=== PATIENT | male | born 2000 | race Caucasian/White ===

== ENCOUNTER 2021-01-31 09:00 | Outpatient (REF) | payer MEDICAID, SELFPAY ==
[2021-02-03 18:21] LABS: Calprotectin 33.9 mcg/g
== END 2021-01-31 09:01 | disposition home or self-care (01) ==
LOC: NCHCN 09:00
PROVIDERS: PCP Family Medicine; Visit Provider Family Medicine
DX: K62.5 Hemorrhage of anus and rectum (principal)
CPT/HCPCS: 83993

== ENCOUNTER 2023-06-28 09:52 | Outpatient (REF) | payer MEDICAID, SELFPAY ==
[2023-06-28 15:09] LABS: HCT 47.8 % (40.0-50.0); HGB 16.3 g/dL (13.5-17.5); MCH 31.7 pg (27.0-33.0); MCHC 34.1 % (32.0-36.0); MCV 93 fL (80-95); MPV 10.5 fL (8.0-11.0); Platelet Count 220 10^3/uL (130-400); RBC 5.14 10^6/uL (4.36-5.78); RDW 12.1 % (11.8-14.1); WBC 5.97 10^3/uL (4.4-10.8)
[2023-06-28 15:33] LABS: ALT 25 U/L (16-63); AST 14 U/L (15-37); Albumin 4.7 g/dL (3.4-5.0); Alkaline Phosphatase 124 U/L (46-116); Anion Gap 7.5 mmol/L (3-11); BUN 16 mg/dL (7-18); Bilirubin, Total 0.7 mg/dL (0.2-1.0); CO2 32.5 mmol/L (21.0-32.0); CREATININE 0.9 mg/dL (0.70-1.30); Calcium 9.5 mg/dL (8.5-10.1); Chloride 101 mmol/L (98-107); Estimated GFR 123.07 (mL/min/1.73m2); FREE T4 1.13 ng/dL (0.76-1.46); Glucose 93 mg/dL (74-106); Potassium 4.2 mmol/L (3.5-5.1); Sodium 141 mmol/L (136-145); TSH 0.88 uIU/Ml (0.36-3.74); Total Protein 8.3 g/dL (6.4-8.2)
[2023-06-28 15:36] LABS: C-Reactive Protein < 0.50 mg/dL (<or=0.5)
[2023-06-29 13:13] LABS: Chlamydia Result Negative (Negative); GC Result Negative (Negative)
== END 2023-06-28 09:53 | disposition home or self-care (01) ==
LOC: NCHCN 09:52
PROVIDERS: PCP Family Medicine; Visit Provider Family Medicine
DX: R00.2 Palpitations (principal); R53.83 Other fatigue; M54.50 Low back pain, unspecified; R35.0 Frequency of micturition
CPT/HCPCS: 80053; 85027; 87491; 87591; 84439; 84443; 86140

== ENCOUNTER → 2023-07-05 02:10 | Outpatient (CLI) | payer MEDICAID, SELFPAY ==
--- NOTE | 2023-07-05 14:50 | DI.MRI_ITS ---
Exam(s) MR BRAIN WO EXAM: MR BRAIN WO CLINICAL HISTORY: HEADACHE, R51.9 TECHNIQUE: Multiplanar multisequence MRI of the brain was performed. COMPARISON: No exams were available for comparison FINDINGS: CEREBRAL PARENCHYMA: There is no evidence of intracranial hemorrhage, mass effect, or shift of midline structures. There are no extra-axial fluid collections. Ventricles are not enlarged or shifted. There is no significant focal signal abnormality in the cerebellar hemispheres nor within the addy, m idbrain, and thalami. There is no abnormal signal abnormality in the periventricular white matter. There is no significant focal signal abnormality evident on diffusion imaging to suggest acute ischem ic event. Sw I: No evidence of microhemorrhages. PITUITARY GLAND: No mass nor parasellar abnormality. No obvious abnormality in the cavernous sinuses. FLOW VOIDS: The expected flow void are noted. No evidence of obvious aneurysm nor obvious vascular ma lformation. None the left vertebral artery is dominant. PARANASAL SINUSES: There is mild circumferential mucosal thickening in the right maxillary sinus, not associated with fluid level. Left maxillary sinus unremarkable as are the sphenoid sinuses. The fr ontal sinuses are not developed. Mastoid air cells unremarkable. ORBITS: No obvious findings. IMPRESSION: No significant intracranial findings on this noninfused MRI scan of the brain. Mild mucosal thickening noted in the right maxillary sinus. No fluid level therein. No polyps nor r etention cysts identified. Frontal sinuses are hypoplastic-not developed. DATA REPOSITORY:
== END ==
PROVIDERS: PCP Family Medicine; Visit Provider Family Medicine
DX: R51.9 Headache, unspecified (principal)
CPT/HCPCS: 70551

== ENCOUNTER 2023-07-10 13:11 | Outpatient (CLI) | payer MEDICAID, SELFPAY ==
[2023-07-10 11:32] LABS: ESR 1 mm/hr (0-15)
[2023-07-10 11:36] LABS: Bilirubin Negative (Negative); Blood Negative (Negative); Clarity Clear (Clear); Glucose Negative (Negative); Ketones Negative (Negative); Leukocyte Esterase Negative (Negative); Nitrite Negative (Negative); Urobilinogen 0.2 mg/dL (Up to 0.2)
[2023-07-10 11:39] LABS: Mono Screening Negative (Negative)
[2023-07-10 12:25] LABS: Vitamin D 25 Total 35.8 ng/mL (30-100)
[2023-07-10 12:28] LABS: ALT 17 U/L (16-63); AST 14 U/L (15-37); Albumin 4.9 g/dL (3.4-5.0); Alkaline Phosphatase 127 U/L (46-116); Anion Gap 8.8 mmol/L (3-11); BUN 18 mg/dL (7-18); Bilirubin, Total 0.5 mg/dL (0.2-1.0); CO2 32.2 mmol/L (21.0-32.0); CREATININE 0.9 mg/dL (0.70-1.30); Calcium 9.7 mg/dL (8.5-10.1); Calculated LDL 132 mg/dL (<100); Chloride 102 mmol/L (98-107); Cholesterol 206 mg/dL (<200); Estimated GFR 123.07 (mL/min/1.73m2); Glucose 86 mg/dL (74-106); HDL Cholesterol 63 mg/dL (40-60); Potassium 4.1 mmol/L (3.5-5.1); Sodium 143 mmol/L (136-145); TSH (W/Ref FT4) 0.78 uIU/mL (0.36-3.74); Total Protein 8.4 g/dL (6.4-8.2); Triglyceride 56 mg/dL (<150); Vitamin B12 582 pg/mL (193-986)
[2023-07-10 18:39] LABS: HIV-1/2 Ag & Ab Screen Negative (Negative)
[2023-07-10 20:32] LABS: Hepatitis A Antibody IgM Negative (Negative); Hepatitis B Core Antibody Negative (Negative); Hepatitis B surface Ag Negative (Negative); Hepatitis C Ab w Rflx HCV PCR Negative (Negative)
[2023-07-11 09:43] LABS: Lyme Ab w Rflx to Lyme Confirm Negative (Negative)
[2023-07-11 09:50] LABS: Syphilis Serology (RPR) Negative (Negative)
[2023-07-11 14:02] LABS: ANA Interpretation Negative (Negative)
[2023-07-11 16:09] LABS: Chlamydia Result Negative (Negative); GC Result Negative (Negative)
== END 2023-07-10 13:12 | disposition home or self-care (01) ==
LOC: LBO 13:11
PROVIDERS: PCP Family Medicine; Visit Provider Nurse Practitioner Family
DX: E55.9 Vitamin D deficiency, unspecified (principal); D51.3 Other dietary vitamin B12 deficiency anemia; I10 Essential (primary) hypertension; E78.5 Hyperlipidemia, unspecified; A69.20 Lyme disease, unspecified
CPT/HCPCS: 36415; 80053; 80061; 82306; 85652; 86704; 86709; 86803; 87340; 87389; 87491; 87591; 81003; 82607; 84443; 86038; 86308; 86592; 86618

== ENCOUNTER 2023-09-29 08:54 | Emergency (ER) | payer MEDICAID, SELFPAY ==
[2023-09-29] VITALS (24 sets, daily range): BP systolic 98–141; BP diastolic 49–88; PULSE 44–71; RESP 12–22; TEMP 36.6–36.8; O2SAT 99–100
[2023-09-29] MEDS: ACETAMINOPHEN 1,000 MG/100 ML BTL 400 MG IVPB (09:20)
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
[2023-09-29 09:35] LABS: Abs Immature Grans 0.07 10^3/uL (0.0-0.06); Absolute Basophil Count 0.02 10^3/uL (0.0-0.2); Absolute Eosinophil Count 0.18 10^3/uL (0.0-0.7); Absolute Lymphocyte Count 1.62 10^3/uL (1.2-3.4); Absolute Monocyte Count 0.39 10^3/uL (0.1-0.8); Basophils % 0.3 %; Eosinophils % 2.6 %; HCT 46.3 % (40.0-50.0); HGB 15.6 g/dL (13.5-17.5); Lymphocytes % 23.5 %; MCHC 33.7 % (32.0-36.0); MCV 95 fL (80-95); MPV 9.9 fL (8.0-11.0); Monocytes % 5.7 %; Neutrophils % 66.9 %; Platelet Count 175 10^3/uL (130-400); RBC 4.87 10^6/uL (4.36-5.78); RDW 11.8 % (11.8-14.1); RDW-SD 40.9 fL; WBC 6.88 10^3/uL (4.4-10.8)
[2023-09-29] MEDS: Omnipaque 350 MG/ML 100 ML BTL IJ (10:03)
[2023-09-29] MEDS: Normal Saline - Diluent 50 ML VIAL IJ (10:04)
--- NOTE | 2023-09-29 10:04 | DI.CT_ITS ---
Exam(s) CT HEAD CERVICAL SPINE WO EXAM: CT HEAD CERVICAL SPINE WO CLINICAL HISTORY: Trauma, loss of consciousness. TECHNIQUE: Imaging Protocol: Axial computed tomography images with coronal and sagittal reformatted images were created and reviewed COMPARISON: No exams were available for comparison FINDINGS: CT Head: Ventricles and Extra axial spaces: Normal in size and morphology for the patient's age. Hemorrhage: None. Cerebral parenchyma: Normal. Midline shift: None. Brainstem/Cerebellum: Normal. Calvarium: Normal. Visualized Paranasal sinuses/Mastoids: Clear. Soft Tissues: Unremarkable. CT Cervical Spine: Bones: No acute fracture or subluxation. Soft Tissues: Small amount of subcutaneous air is seen in anteriorly on the left. Lung Apices: There is a small left apical pneumothorax. IMPRESSION: 1. No acute intracranial process. 2. No acute fracture or subluxation in the cervical spine. 3. Small left apical pneumothorax. RADIATION DOSE DELIVERED: Total DLP DATA REPOSITORY: All CT scans at this facility are submitted to the National Radiology Data Registry (NRDR) Dose Index Registry (DIR) with the [employer] (ACR). RADIATION OPTIMIZATION: All CT scans at this facility use at least one of these dose optimization te chniques: automated exposure control; mA and/or kV adjustment per patient size (includes targeted exa ms where dose is matched to clinical indication); or iterative reconstruction.
--- NOTE | 2023-09-29 10:07 | DI.CT_ITS ---
Exam(s) CT CHEST/ABD/PEL W CT THORACIC LUMBAR SPINE REC EXAM: CT CHEST/ABD/PEL W and CT thoracic and lumbar spine recons CLINICAL HISTORY: Trauma, right clavicle deformity TECHNIQUE: Imaging Protocol: Axial computed tomography images with coronal and sagittal reformatted images were created and reviewed CONTRAST MATERIAL: Intravenous: Omnipaque 350 contrast volume:100 mL Oral: No COMPARISON: There are no priors for comparison. FINDINGS: CHEST: Tracheobronchial tree: Patent where visualized. Pulmonary parenchyma: No consolidation or dominant measurable mass. No architectural distortion. Visualized thyroid gland: Unremarkable. Mediastinum and Darby: No dominant adenopathy or fluid collection. The esophagus is unremarkable. The re is residual thymic tissue in the anterior mediastinum. Pleura: There are small bilateral apical pneumothoraces, left greater than right. No pleural effusio n. Heart: The heart is not dilated. No coronary artery calcifications are seen. No pericardial effusion. Pulmonary arteries: Due to the timing of the bolus, peripheral pulmonary artery evaluation for pulmon flor emboli is limited. No large central pulmonary embolus is seen. Aorta: Thoracic aorta non-dilated. No evidence of dissection. Lymph nodes: Within normal limits. Soft tissues: There is subcutaneous air along the anterior superior left chest wall. Bones:There is an acute mildly displaced fracture of the midshaft of the right clavicle. There are n ondisplaced fractures of the anterior aspects of the right 2nd and 3rd ribs. No displaced left rib f ractures are identified. CT scan of the thoracic spine recons: No acute fractures or subluxations are seen in the thoracic spi ne. ABDOMEN: Liver: Normal density. No measurable mass. Portal, Superior Mesenteric, and Splenic Veins: Unremarkable. Gallbladder and Biliary Tract: No radiodense calculus or dilation. Pancreas: Normal density, no abnormal calcifications or inflammatory process. Spleen: Normal. Adrenals: No masses seen. Kidneys: Normal size, contour and axis. No radiodense stones or obstructive uropathy. No masses seen. Abdominal Aorta: Abdominal portion non-dilated. Bowel: No obstruction or bowel wall thickening. No evidence of appendicitis. Peritoneal Cavity: No ascites, collection or mesenteric inflammatory response. No free air. Lymph Nodes: Within normal limits. Bones: Within normal limits for the patient's age. Soft Tissues: Unremarkable. Lumbar spine CT recons: There is a displaced fracture of the right transverse process of L1. This is of indeterminate acuity. Please correlate with the patient's site of pain. PELVIS: Bladder: Symmetric distention, no gross wall thickening. Reproductive Organs: Unremarkable as visualized. Lymph Nodes: Within normal limits. Bones: Within normal limits. IMPRESSION: 1. Small bilateral apical pneumothoraces, left greater than right. 2. Small amount of subcutaneous air in the anterior superior left chest wall. 3. Nondisplaced fractures involving the anterior and medial aspects of the right 2nd and 3rd ribs. 4. No acute abdominal or pelvic organ injury. 5. No thoracic fracture or subluxation. 6. Displaced fracture of the right transverse process of L1 of indeterminate acuity. Please correlat e with the patient's site of pain. Otherwise no acute fractures or subluxations are seen in the lumb ar spine. RADIATION DOSE DELIVERED: Total DLP DATA REPOSITORY: All CT scans at this facility are submitted to the National Radiology Data Registry (NRDR) Dose Index Registry (DIR) with the [employer] (ACR). RADIATION OPTIMIZATION: All CT scans at this facility use at least one of these dose optimization te chniques: automated exposure control; mA and/or kV adjustment per patient size (includes targeted exa ms where dose is matched to clinical indication); or iterative reconstruction.
[2023-09-29 11:59] LABS: ALT 79 U/L (16-63); AST 66 U/L (15-37); Albumin 4.2 g/dL (3.4-5.0); Alkaline Phosphatase 112 U/L (46-116); Anion Gap 5.4 mmol/L (3-11); BUN 13 mg/dL (7-18); Bilirubin, Total 0.83 mg/dL (0.2-1.0); CO2 30.6 mmol/L (21.0-32.0); Calcium 8.8 mg/dL (8.5-10.1); Chloride 103 mmol/L (98-107); Estimated GFR 108.46 (mL/min/1.73m2); Glucose 96 mg/dL (74-106); Potassium 4.7 mmol/L (3.5-5.1); Sodium 139 mmol/L (136-145); Total Protein 7.2 g/dL (6.4-8.2)
[2023-09-29 12:21] LABS: Bilirubin Negative (Negative); Blood Small (Negative); Clarity Clear (Clear); Glucose Negative (Negative); Ketones Trace mg/dL (Negative); Leukocyte Esterase Negative (Negative); Nitrite Negative (Negative); Urobilinogen 0.2 mg/dL (Up to 0.2); pH 6.5 (5-8)
[2023-09-29 12:27] LABS: Bacteria Rare HPF (Negative); C & S Indicated? No; Crystals Negative HPF (Negative); Epithelial Cells Negative HPF (Negative); Mucus Trace (Negative); WBC 0-2 HPF (0-5)
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
--- NOTE | 2023-09-29 16:07 | DI.RAD_ITS ---
Exam(s) XR SHOULDER LT COMPLETE 2+V EXAM: XR SHOULDER LT COMPLETE 2+V CLINICAL HISTORY: trauma. TECHNIQUE: 2D digital imaging was performed. COMPARISON: No exams were available for comparison FINDINGS: Four views No evidence of fracture or dislocation abnormal soft tissue calcifications. Subacromial space appear s unremarkable. No evidence of clavicle fracture. Slight offset of the AC joint, possibly within no rmal limits. No adjacent rib fractures evident. No ipsilateral lung contusion or pneumothorax. IMPRESSION: Slight offset of the AC joint, pops the within normal limits. Correlation with site of tenderness is recommended. No fracture of the left clavicle evident. DATA REPOSITORY: RADIATION DOSE DELIVERED:
--- NOTE | 2023-09-29 16:07 | DI.RAD_ITS ---
Exam(s) XR CLAVICLE RT EXAM: XR CLAVICLE RT CLINICAL HISTORY: trauma. TECHNIQUE: 2D digital imaging was performed. COMPARISON: No exams were available for comparison FINDINGS: Two views There is a nondisplaced fracture of the midshaft of right. AC joint not distracted. Acromion appears unremarkable. No adjacent rib fractures. No apical pneum othorax evident IMPRESSION: Midshaft right clavicle fracture. DATA REPOSITORY: RADIATION DOSE DELIVERED:
--- NOTE | 2023-09-29 16:07 | DI.RAD_ITS ---
Exam(s) XR CHEST 2V PA LATERAL EXAM: XR CHEST 2V PA LATERAL CLINICAL HISTORY: Reassess pneumothorax. TECHNIQUE: 2D digital imaging was performed. COMPARISON: CR XR CLAVICLE RT from 09/29/2023 FINDINGS: 2 views: Heart size is normal. The mediastinum is not widened. Lungs are clear. No infiltrates nor pleural effusions. No obvious pneumothorax. Subtle suggestion for right clavicle fracture. AC joint not distracted. No obvious rib fractures. IMPRESSION: No acute pulmonary findings.No obvious pneumothorax Subtle fracture right clavicle DATA REPOSITORY: RADIATION DOSE DELIVERED:
[2023-09-29] MEDS: Ketorolac 15 MG/ML VIAL 7.5 MG IVP (17:01)
== END 2023-09-29 17:33 | disposition home or self-care (01) ==
PROVIDERS: Nurse Practitioner Family; Emergency Provider Physician Assistant
DX: S42.021A Displaced fracture of shaft of right clavicle, initial encounter for closed fracture (principal); S22.41XA Multiple fractures of ribs, right side, initial encounter for closed fracture; S27.0XXA Traumatic pneumothorax, initial encounter; S32.018A Other fracture of first lumbar vertebra, initial encounter for closed fracture; R40.20 Unspecified coma; S43.52XA Sprain of left acromioclavicular joint, initial encounter
CPT/HCPCS: 00123; 74177; 80053; 96374; 96375; 99285; 70450; 71046; 71260; 72125; 73000; 73030; 81003; 81015; 85025; 99283; J0131; J1885; J3490

== ENCOUNTER 2023-09-30 08:24 | Emergency (ER) | payer MEDICAID, SELFPAY ==
[2023-09-30 08:30] VITALS: BP 112/69; PULSE 68; RESP 16; TEMP 36.4; O2SAT 99
--- NOTE | 2023-09-30 08:30 | DI.RAD_ITS ---
Exam(s) XR CHEST 2V PA LATERAL EXAM: XR CHEST 2V PA LATERAL CLINICAL HISTORY: Reassess pneumothorax TECHNIQUE: 2D digital imaging was performed of the chest. Two images were obtained. PA and lateral views were obtained. COMPARISON: CR XR CLAVICLE RT from 09/29/2023 CR XR CHEST 2V PA LATERAL from 09/29/2023 FINDINGS: MEDIASTINUM: Normal. HEART: Normal. PULMONARY VASCULATURE: Normal. LUNGS: Clear. PLEURAL SPACE: No pleural effusion or pneumothorax. BONE:Within normal limits for the patient's age. There is no change in alignment of the right clavic ular fracture. OTHER FINDINGS:Normal. IMPRESSION: 1. No demonstrable pneumothorax is identified at this time. 2. No pulmonary infiltrates. 3. Stable right clavicular fracture. DATA REPOSITORY: RADIATION DOSE DELIVERED:
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
[2023-09-30 09:44] VITALS: BP 110/50; PULSE 62; RESP 18; O2SAT 100
== END 2023-09-30 09:45 | disposition home or self-care (01) ==
PROVIDERS: Emergency Provider Nurse Practitioner Family
DX: J93.9 Pneumothorax, unspecified (principal); S42.024D Nondisplaced fracture of shaft of right clavicle, subsequent encounter for fracture with routine healing; S43.101D Unspecified dislocation of right acromioclavicular joint, subsequent encounter; S22.41XD Multiple fractures of ribs, right side, subsequent encounter for fracture with routine healing; F17.210 Nicotine dependence, cigarettes, uncomplicated; F17.290 Nicotine dependence, other tobacco product, uncomplicated; W15.XXXD Fall from cliff, subsequent encounter
CPT/HCPCS: 99283; 71046

== ENCOUNTER → 2023-10-05 13:38 | Outpatient (CLI) | payer MEDICAID, SELFPAY ==
--- NOTE | 2023-10-05 10:27 | DI.RAD_ITS ---
Exam(s) XR CHEST 2V PA LATERAL EXAM: XR CHEST 2V PA LATERAL CLINICAL HISTORY: HX OF PNEUMONIA TECHNIQUE: 2D digital imaging was performed. Two views. COMPARISON: CR XR CHEST 2V PA LATERAL from 09/29/2023 CR XR CHEST 2V PA LATERAL from 09/30/2023 FINDINGS: HEART: Normal size. Aorta: Not dilated. PULMONARY VASCULATURE: Normal. MEDIASTINUM: Unremarkable. LUNGS: Clear. PLEURAL SPACE: No pneumothorax. Tiny left pleural effusion. BONE:Unremarkable for age. SOFT TISSUES: Unremarkable. IMPRESSION: Tiny left pleural effusion. DATA REPOSITORY: RADIATION DOSE DELIVERED:
--- OUTSIDE RECORDS SUMMARY | 2023-10-05 13:40 | XMS_ITS | Clinical Summary ---
Author Organization [facility] Address [address] [place] [address] Care Team Providers Care Tap Builder Name Role Phone Unknown, Provider Primary Care Provider Encounters Date Type Department Care Team Description 07/10/2023 Lab Requisition [facility] [address] [address] Outr Resulting Lab, Provider 07/10/2023 Lab Requisition [facility] [address] [address] Outr Resulting Lab, Provider 07/10/2023 Lab Requisition [facility] [address] [address] Outr Resulting Lab, Provider 07/10/2023 Lab Requisition [facility] [address] [address] Outr Resulting Lab, Provider from Last 3 Months Social History Tobacco Use Types Packs/Day Years Used Date Smoking Tobacco: Never Assessed Sex and Gender Information Value Date Recorded Sex Assigned at Not on file Gender Identity Not on file Sexual Orientation Not on file Plan of Treatment Health Maintenance Due Date Last Done Comments Hepatitis C Screen 2000 Hepatitis B Vaccine (1 of 3 - 19+ 3-dose series) 03/31 COVID-19 Vaccine ( season) 2022 Procedures Procedure Name Priority Date/Time Associated Diagnosis Comments HIV 1/2 ANTIGEN AND ANTIBODY, 4TH GENERATION Routine 07/10/2023 11:20 EDT SYPHILIS SEROLOGY Routine 07/10/2023 11: 20 EDT LYME AB Routine 07/10/2023 11:20 EDT ANTI NUCLEAR AB (SIDNEY), IFA Routine 07/10/2023 11:20 EDT ACUTE HEPATITIS PROFILE Routine 07/10/2023 11:20 EDT CHLAMYDIA/N. GONORRHOEAE AMPLIFIED NUCLEIC ACID Routine 07/10/2023 11:20 EDT from Last 3 Months Results * ACUTE HEPATITIS PROFILE (07/10/2023 11:20 EDT) Hep B Surface Ag Negative Negative 07/10/2023 20:27 EDT [facility] Hep C Antibody Negative Negative 07/10/2023 20:27 EDT [facility] Hepatitis A Antibody, IgM Negative Negative 07/10/2023 20:27 EDT [facility] Comment:The results of this assay can be falsely lowered due to the consumption of Biotin. Hepatitis B Core Ab, Total Negative Negative 07/10/2023 20:27 EDT [facility] Blood VENOUS BLOOD / Unknown 07/10/2023 11:20 EDT 07/10/2023 16:51 EDT Provider Outr Resulting Lab CHEMISTRY & BLOOD GAS ORDERABLES Performing Organization Address [facility]/ZIP Co de Phone Number [facility] [address] [place] [address] * SYPHILIS SEROLOGY (07/10/2023 11:20 EDT) Pathologist [facility] Syphilis Serology Negative Negative 07/11/2023 9:45 EDT [facility] Blood VENOUS BLOOD / Unknown 07/10/2023 11:20 EDT 07/10/2023 16:51 EDT Provider Outr Resulting Lab IMMUNOLOGY A ND SEROLOGY ORDERABLES Performing Organization Address [facility]/ZIP Co de Phone Number [facility] [address] [place] [address] * LYME AB (07/10/2023 11:20 EDT) Lyme Ab Negative Negative 07/11/2023 9:38 EDT [facility] Blood VENOUS BLOOD / Unknown 07/10/2023 11:20 EDT 07/10/2023 16:51 EDT Provider Outr Resulting Lab IMMUNOLOGY A ND SEROLOGY ORDERABLES Performing Organization Address City/[facility]/ZIP Co de Phone Number [facility] [address] [place] [address] * CHLAMYDIA/N. GONORRHOEAE AMPLIFIED RNA (07/10/2023 11:20 EDT) Pathologist [facility] Neisseria gonorrhoeae Result Negative Negative 07/11/2023 16:04 EDT [facility] Chlamydia trachomatis Result Negative Negative 07/11/2023 16:04 EDT [facility] Urine URINE / Unknown 07/10/2023 1 1:20 EDT 07/10/2023 17:19 EDT Provider Outr Resulting Lab MICROBIOLOGY - GENERAL ORDERABLES Performing Organization Address [facility] Co de Phone Number [facility] [address] [place] [phone] * HIV 1/2 ANTIGEN AND ANTIBODY, 4TH GENERATION (07/10/2023 11:20 EDT) Pathologist [facility] HIV 1 and 2 Antibody/p24 Antigen, 4th Generation Negative Negative 07/10/2023 18:35 EDT [facility] Comment:If acute HIV-1 infec tion is suspected in a high risk patient, submit plasma specimen for HIV-1 RNA quantitation test. Blood VENOUS BLOOD / Unknown 07/10/2023 11:20 EDT 07/10/2023 16:51 EDT Narrative [facility] - 07/10/2023 18:35 EDT Fourth Generation assay performed on the Siemens Centaur XPT. Provider Outr Resulting Lab IMMUNOLOGY A ND SEROLOGY ORDERABLES Performing Organization Address City/[facility]/ZIP Co de Phone Number [facility] [address], [place] [address] * ANTI NUCLEAR AB (SIDNEY), IFA (07/10/2023 11:20 EDT) SIDNEY Interpretation Negative Negative 2023 13:57 EDT [facility] Comment:No titer performed, SIDNEY Screen is negative. Blood VENOUS BLOOD / Unknown 07/10/2023 11:20 EDT 07/10/2023 16:51 EDT Narrative [facility] - 07/11/2023 13:57 EDT Results were obtained with the [employer] NOVA Lite HEp-2 SIDNEY Kit by indirect immunofluorescence. Provider Outr Resulting Lab IMMUNOLOGY A ND SEROLOGY ORDERABLES Performing Organization Address [facility]/ZIP Co de Phone Number [facility] [address], [place] [address] from Last 3 Months Care Teams Tap Builder Relationship Specialty Start Date End Date Unknown, Provider, PCP - General 02/03/21
--- OUTSIDE RECORDS SUMMARY | 2023-10-05 13:40 | XMS_ITS | Encounter Summary ---
Author Organization [facility] Address [address] [place] [address] Care Team Providers Care Stem Roller Operator Name Role Phone Unknown, Provider Primary Care Provider Encounter Details Date Type Department Care Team (Late st Contact Info) Description 07/10/2023 Lab Requisition [facility] Pathology & Laboratory Medicine - [facility] [address], [place] [phone] Outr Resulting Lab, Provider Social History Tobacco Use Types Packs/Day Years Used Date Smoking Tobacco: Never Assessed Sex and Gender Information Value Date Recorded Sex Assigned at Not on file Gender Identity Not on file Sexual Orientation Not on file documented as of this encounter Plan of Treatment Not on file documented as of this encounter Procedures Procedure Name Priority Date/Time Associated Diagnosis Comments HIV 1/2 ANTIGEN AND ANTIBODY, 4TH GENERATION Routine 07/10/2023 11:20 EDT documented in this encounter Results * HIV 1/2 ANTIGEN AND ANTIBODY, 4TH GENERATION (07/10/2023 11:20 EDT) HIV 1 and 2 Antibody/p24 Antigen, 4th Generation Negative Negative 07/10/2023 18:35 EDT [facility] Comment:If acute HIV-1 infec tion is suspected in a high risk patient, submit plasma specimen for HIV-1 RNA quantitation test. Blood VENOUS BLOOD / Unknown 07/10/2023 11:20 EDT 07/10/2023 16:51 EDT Narrative [facility] - 07/10/2023 18:35 EDT Fourth Generation assay performed on the Siemens ScalITaur XPT. Provider Outr Resulting Lab IMMUNOLOGY A ND SEROLOGY ORDERABLES [facility] [address] [place] [address] documented in this encounter Visit Diagnoses Not on filedocumented in this encounter Care Teams Stem Roller Operator Relationship Specialty Start Date End Date Unknown, Provider, PCP - General 02/03/21 documented as of this encounter
--- OUTSIDE RECORDS SUMMARY | 2023-10-05 13:40 | XMS_ITS | Encounter Summary ---
Author Organization [facility] Address [address] [place] [address] Care Team Providers Care Elevator Operator Service Name Role Phone Unknown, Provider Primary Care Provider [phone] Encounter Details Date Type Department Care Team (Late st Contact Info) Description 03/09/2021 Lab Requisition [facility] Pathology & Laboratory Medicine - [facility] [address] [place] [address] Panda Christensen MD [address] [place] [address] [phone] Change in bowel habit; Melena Social History Tobacco Use Types Packs/Day Years Used Date Smoking Tobacco: Never Assessed Sex and Gender Information Value Date Recorded Sex Assigned at Not on file Gender Identity Not on file Sexual Orientation Not on file documented as of this encounter Plan of Treatment Not on file documented as of this encounter Procedures Procedure Name Priority Date/Time Associated Diagnosis Comments SURGICAL PATHOLOGY Today 03/08/2021 10 :18 EST Change in bowel habit Melena documented in this encounter Results * SURGICAL PATHOLOGY (03/08/2021 10:18 EST) Note to Patient The following pathology results have been interpreted by your pathologist and may be available to you before your health provider has had the opportunity to review them. Please allow time for your provider to receive these results and explore management options, if applicable. 03/11/2021 9:32 EST [facility] Final Diagnosis A. TERMINAL ILEUM, BIOPSY: - Enteric mucosa with no significant diagnostic abnormalities. B. COLON, CECUM, BIOPSY: - Colonic mucosa with no significant diagnostic abnormalities. - Benign reactive lymphoid aggregate noted. C. COLON, ASCENDING, BIOPSY: - Colonic mucosa with no significant diagnostic abnormalities. D. COLON, TRANSVERSE, BIOPSY: - Colonic mucosa with no significant diagnostic abnormalities. E. COLON, DESCENDING, BIOPSY: - Colonic mucosa with no significant diagnostic abnormalities. F. COLON, SIGMOID, BIOPSY: - Colonic mucosa with no significant diagnostic abnormalities. G. 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 - Negative for dysplasia. 03/11/2021 9:32 [facility] Attestation There was significant resident/fellow involvement in the diagnostic evaluation of this case. By the signature below, the attending physician certifies that they have personally conducted a gross and/or microscopic examination of the described specimens and rendered or confirmed the above diagnosis. 03/11/2021 9:32 [facility] at 0932 Clinical History History hematochezia, change in bowels; posterior anal fissure, proctitis 03/11/2021 9:32 [facility] Gross Description A. Received in formalin labelled with proper patient identification (initials B, E) and terminal ileum is a 0.5 x 0.2 x 0.1 cm light khalil tissue. Submitted intact in A1. B. Received in formalin labelled with proper patient identification (initials B, E) and cecum bx is a khalil-pink tissue measuring 0.9 x 0.1 x 0.1 cm. Submitted intact in B1. C. Received in formalin labelled with proper patient identification (initials B, E) and ascending colon bx is a 0.5 x 0.2 x 0.1 cm khalil-pink tissue. Submitted intact in C1. D. Received in formalin labelled with proper patient identification (initials B, E) and transverse colon bx is a light khalil tissue measuring 0.5 x 0.1 x 0.1 cm. Submitted intact in D1. E. Received in formalin labelled with proper patient identification (initials B, E) and descending colon bxs are 2 light khalil tissues measuring 0.1 x 0.1 x 0.1 cm and 0.3 x 0.1 x 0.1 cm. Submitted intact in E1. F. Received in formalin labelled with proper patient identification (initials B, E) and sigmoid colon bx is a khalil-pink tissue measuring 0.2 x 0.2 x 0.1 cm. Submitted intact in F1. G. Received in formalin labelled with proper patient identification (initials B, E) and rectum are 3 light khalil tissues ranging in size from 0.3 x 0.1 x 0.1 cm up to 0.4 x 0.2 x 0.1 cm. Submitted intact in G1. SHEILA WALLER(ASCP) 03/09/2021 19:43 03/11/2021 9:32 EST [facility] Resident/Angus w: Keke Clark MD 03/11/2021 9:32 EST [facility] Performing Lab [facility] 03/11/2021 9:32 EST [facility] Scanned Images 03/11/2021 9:32 EST [facility] Tissue SPECIMEN FROM RECTUM / Unknown 03/08/2021 10:18 EST 03/09/2021 17:04 EST Tissue specimen (specimen) CECUM STRUCTURE / Unknown 03/08/2021 10:18 EST 03/09/2021 17:04 EST Tissue specimen (specimen) ASCENDING COLON STRUCTURE / Unknown 03/08/2021 10:18 EST 03/09/2021 17:04 EST Tissue specimen (specimen) TRANSVERSE COLON STRUCTURE / Unknown 03/08/2021 10:18 EST 03/09/2021 17:04 EST Tissue specimen (specimen) DESCENDING COLON STRUCTURE / Unknown 03/08/2021 10:18 EST 03/09/2021 17:04 EST Tissue specimen (specimen) SIGMOID COLON STRUCTURE / Unknown 03/08/2021 10:18 EST 03/09/2021 17:04 EST Tissue specimen (specimen) SPECIMEN FROM RECTUM / Unknown 03/08/2021 10:18 EST 03/09/2021 17:04 EST Panda Christensen MD PATHOLOGY ORD ERABLES [facility] [address] [place] [address] documented in this encounter Visit Diagnoses Diagnosis Change in bowel habit Melena Blood in stool documented in this encounter Care Teams Elevator Operator Service Relationship Specialty Start Date End Date Unknown, Provider, PCP - General 02/03/21 documented as of this encounter
--- OUTSIDE RECORDS SUMMARY | 2023-10-05 13:40 | XMS_ITS | Encounter Summary ---
Author Organization [facility] Address [address] [place] [address] Care Team Providers Care Pharmacy Affairs Assistant Name Role Phone Unknown, Provider Primary Care Provider [phone] Encounter Details Date Type Department Care Team (Late st Contact Info) Description 07/10/2023 Lab Requisition [facility] Pathology & Laboratory Medicine - [facility] [address], [place] [address] Outr Resulting Lab, Provider Social History Tobacco [...] Procedure Name Priority Date/Time Associated Diagnosis Comments CHLAMYDIA/N. GONORRHOEAE AMPLIFIED NUCLEIC ACID Routine 07/10/2023 11:20 EDT documented in this encounter Results * CHLAMYDIA/N. GONORRHOEAE AMPLIFIED RNA (07/10/2023 11:20 EDT) Neisseria gonorrhoeae Result Negative Negative 07/11/2023 16:04 EDT [facility] Chlamydia trachomatis Result Negative Negative 07/11/2023 16:04 EDT [facility] Urine URINE / Unknown 07/10/2023 1 1:20 EDT 07/10/2023 17:19 EDT Provider Outr Resulting Lab MICROBIOLOGY - GENERAL ORDERABLES [facility] [address] [place], [place] [address] documented in this encounter Visit Diagnoses Not on filedocumented in this encounter Care Teams Pharmacy Affairs Assistant Relationship Specialty Start Date End Date Unknown, Provider, PCP - General 02/03/21 documented as of this encounter
--- OUTSIDE RECORDS SUMMARY | 2023-10-05 13:40 | XMS_ITS | Encounter Summary ---
Author Organization [facility] Address [address] [place] [address] Care Team Providers Care Bottle Hop Name Role Phone Unknown, Provider Primary Care Provider [phone] Encounter Details Date Type Department Care Team (Late st Contact Info) Description 04/26/2021 Lab Requisition [facility] Pathology & Laboratory Medicine - [address] [id number] Panda Christensen MD [address] [place] [address] [phone] Other specified diseases of anus and rectum; Acute anal fissure Social History Tobacco Use Types Packs/Day Years Used Date Smoking Tobacco: Never Assessed Sex and Gender Information Value Date Recorded Sex Assigned at Not on file Gender Identity Not on file Sexual Orientation Not on file documented as of this encounter Plan of Treatment Not on file documented as of this encounter Procedures Procedure Name Priority Date/Time Associated Diagnosis Comments SURGICAL PATHOLOGY Today 04/26/2021 12 :31 EST Other specified diseases of anus and rectum Acute anal fissure documented in this encounter Results * SURGICAL PATHOLOGY (04/26/2021 12:31 EST) Note to Patient The following pathology results have been interpreted by your pathologist and may be available to you before your health provider has had the opportunity to review them. Please allow time for your provider to receive these results and explore management options, if applicable. 04/28/2021 10:[address] [facility] Final Diagnosis A. COLON, RECTOSIGMOID, BIOPSY: - Colonic mucosa with no significant diagnostic abnormalities. B. RECTUM, MID, BIOPSY: - Rectal mucosa with no significant diagnostic abnormalities. - Negative for dysplasia and malignancy. C. RECTUM, DISTAL, BIOPSY: - Colonic mucosa with mild architectural changes; consistent with repair/regenerati on. - Negative for dysplasia and malignancy. 04/28/2021 10:13 [facility] Attestation By the signature below, the attending physician certifies that they have 1) personally conducted a gross and/or microscopic examination of the described specimen(s), and/or personally interpreted the results of laboratory testing of the described specimen(s), and 2) personally rendered or confirmed the above diagnosis. 04/28/2021 10:13 [facility] at 1013 Clinical History Hx of proctitis +anal fissure; clinical diagnosis code: K62.89, K60.2 04/28/2021 10:13 [facility] Gross Description A. Received in formalin labelled with proper patient identification (initials B, E) and rectosigmoid junction Bx are two khalil tissues, 0.2 x 0.1 x 0.1 cm and 0.3 x 0.1 by less than 0.1 cm. Entirely submitted in A1. B. Received in formalin labelled with proper patient identification (initials B, E) and mid rectum Bx is a khalil tissue, 0.4 x 0.2 x 0.1 cm. Entirely submitted in B1. C. Received in formalin labelled with proper patient identification (initials B, E) and distal rectum Bx are two khalil tissues, 0.2 x 0.2 x 0.1 cm and 0.3 x 0.2 x 0.2 cm. Entirely submitted in C1. SHEILA ZAMBRANO(ASCP) 04/27/2021 8:53 04/28/2021 10:13 [facility] Performing Lab [facility] 04/28/2021 10:13 [facility] Scanned Images 04/28/2021 10:13 [facility] Tissue SPECIMEN FROM RECTUM / Unknown 04/26/2021 12:31 EST 04/26/2021 22:11 EST Tissue specimen (specimen) SPECIMEN FROM RECTUM / Unknown 04/26/2021 12:31 EST 04/26/2021 22:11 EST Tissue specimen (specimen) SPECIMEN FROM RECTUM / Unknown 04/26/2021 12:31 EST 04/26/2021 22:11 EST Panda Christensen MD PATHOLOGY ORD ERABLES [facility] [address] [place] [address] documented in this encounter Visit Diagnoses Diagnosis Other specified diseases of anus and rectum Acute anal fissure Anal fissure documented in this encounter Care Teams Bottle Hop Relationship Specialty Start Date End Date Unknown, Provider, PCP - General 02/03/21 documented as of this encounter
--- OUTSIDE RECORDS SUMMARY | 2023-10-05 13:40 | XMS_ITS | Encounter Summary ---
Author Organization [facility] Address [address] [place] [address] Care Team Providers Care Bench Assembler Electrical Name Role Phone Unknown, Provider Primary Care Provider Encounter Details Date Type Department Care Team (Late st Contact Info) Description 07/10/2023 Lab Requisition [facility] Pathology & Laboratory Medicine - [facility] [address] [place], [place] [phone] Outr Resulting Lab, Provider Social History Tobacco [...] Procedure Name Priority Date/Time Associated Diagnosis Comments SYPHILIS SEROLOGY Routine 07/10/2023 11: 20 EDT LYME AB Routine 07/10/2023 11:20 EDT ANTI NUCLEAR AB (SIDNEY), IFA Routine 07/10/2023 11:20 EDT documented in this encounter Results * SYPHILIS SEROLOGY (07/10/2023 11:20 EDT) Syphilis Serology Negative Negative 07/11/2023 9:45 EDT [facility] Blood VENOUS BLOOD / Unknown 07/10/2023 11:20 EDT 07/10/2023 16:51 EDT Provider Outr Resulting Lab IMMUNOLOGY A ND SEROLOGY ORDERABLES [facility] [address] [place] [address] * LYME AB (07/10/2023 11:20 EDT) Lyme Ab Negative Negative 07/11/2023 9:38 EDT [facility] Blood VENOUS BLOOD / Unknown 07/10/2023 11:20 EDT 07/10/2023 16:51 EDT Provider Outr Resulting Lab IMMUNOLOGY A ND SEROLOGY ORDERABLES Performing Organization Address [facility] Co de Phone Number [facility] [address] [place] [address] * ANTI NUCLEAR AB (SIDNEY), IFA (07/10/2023 11:20 EDT) SIDNEY Interpretation Negative Negative 2023 13:57 EDT [facility] Comment:No titer performed, SIDNEY Screen is negative. Blood VENOUS BLOOD / Unknown 07/10/2023 11:20 EDT 07/10/2023 16:51 EDT Narrative [facility] - 07/11/2023 13:57 EDT Results were obtained with the INOVA NOVA Lite HEp-2 SIDNEY Kit by indirect immunofluorescence. Provider Outr Resulting Lab IMMUNOLOGY A ND SEROLOGY ORDERABLES Performing Organization Address [facility] Co de Phone Number [facility] [address] [place] [phone] documented in this encounter Visit Diagnoses Not on filedocumented in this encounter Care Teams Bench Assembler Electrical Relationship Specialty Start Date End Date Unknown, Provider, PCP - General 02/03/21 documented as of this encounter
--- OUTSIDE RECORDS SUMMARY | 2023-10-05 13:40 | XMS_ITS | Referral Summary ---
Author Organization [facility] Address [address] [place] [address] Care Team Providers Care Planner/Scheduler Name Role Phone Unknown, Provider Primary Care Provider Encounters Date Type Department Care Team Description 07/10/2023 Lab Requisition [facility] Pathology & Laboratory [address] [address] Outr Resulting Lab, Provider 07/10/2023 Lab Requisition [facility] Pathology & Laboratory [address] [address] Outr Resulting Lab, Provider 07/10/2023 Lab Requisition [facility] Pathology & Laboratory [address] [address] Outr Resulting Lab, Provider 07/10/2023 Lab Requisition [facility] Pathology Laboratory [address] [address] Outr Resulting Lab, Provider from Last 3 Months Social History Tobacco Use Types Packs/Day Years Used Date Smoking Tobacco: Never Assessed Sex and Gender Information Value Date Recorded Sex Assigned at Not on file Gender Identity Not on file Sexual Orientation Not on file Plan of Treatment Not on file Procedures Procedure Name Priority Date/Time Associated Diagnosis [...] Surface Ag Negative Negative 07/10/2023 20:27 EDT [facility] Hep C Antibody Negative Negative 07/10/2023 20:27 EDT [facility] Hepatitis A Antibody, IgM Negative Negative 07/10/2023 20:27 EDT [facility] Comment:The results of this assay can be falsely lowered due to the consumption of Biotin. Hepatitis B Core Ab, Total Negative Negative 07/10/2023 20:27 EDT [facility] Blood VENOUS BLOOD / Unknown 07/10/2023 11:20 EDT 07/10/2023 16:51 EDT Provider Outr Resulting Lab CHEMISTRY & BLOOD GAS ORDERABLES Performing Organization Address City/[facility]/ZIP Co de Phone Number [facility] [address] [place] [address] * SYPHILIS SEROLOGY (07/10/2023 11:20 EDT) Syphilis Serology Negative Negative 07/11/2023 9:45 EDT [facility] Blood VENOUS BLOOD / Unknown 07/10/2023 11:20 EDT 07/10/2023 16:51 EDT Provider Outr Resulting Lab IMMUNOLOGY A ND SEROLOGY ORDERABLES Performing Organization Address City/[facility]/ZIP Co de Phone Number [facility] [address] [place] [address] * LYME AB (07/10/2023 11:20 EDT) Lyme Ab Negative Negative 07/11/2023 9:38 EDT [facility] Blood VENOUS BLOOD / Unknown 07/10/2023 11:20 EDT 07/10/2023 16:51 EDT Provider Outr Resulting Lab IMMUNOLOGY A ND SEROLOGY ORDERABLES Performing Organization Address City/[facility]/ZIP Co de Phone Number [facility] [address] [place], [place] [id number] * CHLAMYDIA/N. GONORRHOEAE AMPLIFIED RNA (07/10/2023 11:20 EDT) Neisseria gonorrhoeae Result Negative Negative 07/11/2023 16:04 EDT [facility] Chlamydia trachomatis Result Negative Negative 07/11/2023 16:04 EDT [facility] Urine URINE / Unknown 07/10/2023 1 1:20 EDT 07/10/2023 17:19 EDT Provider Outr Resulting Lab MICROBIOLOGY - GENERAL ORDERABLES Performing Organization Address [facility] Co de Phone Number [facility] [address] [place] [address] * HIV 1/2 ANTIGEN AND ANTIBODY, 4TH GENERATION (07/10/2023 11:20 EDT) HIV 1 and 2 Antibody/p24 Antigen, 4th Generation Negative Negative 07/10/2023 18:35 EDT [facility] Comment:If acute HIV-1 infec tion is suspected in a high risk patient, submit plasma specimen for HIV-1 RNA quantitation test. Blood VENOUS BLOOD / Unknown 07/10/2023 11:20 EDT 07/10/2023 16:51 EDT Narrative [facility] - 07/10/2023 18:35 EDT Fourth Generation assay performed on the Siemens Centaur XPT. Provider Outr Resulting Lab IMMUNOLOGY A ND SEROLOGY ORDERABLES Performing Organization Address City/[facility]/ZIP Co de Phone Number [facility] [address] [place], [place] [id number] * ANTI NUCLEAR AB (SIDNEY), IFA (07/10/2023 11:20 EDT) SIDNEY Interpretation Negative Negative 2023 13:57 EDT [facility] Comment:No titer performed, SIDNEY Screen is negative. Blood VENOUS BLOOD / Unknown 07/10/2023 11:20 EDT 07/10/2023 16:51 EDT Narrative [facility] - 07/11/2023 13:57 EDT Results were obtained with the [employer] NOVA Lite HEp-2 SIDNEY Kit by indirect immunofluorescence. Provider Outr Resulting Lab IMMUNOLOGY A ND SEROLOGY ORDERABLES [facility] [address] [place] [address] from Last 3 Months Care Teams Planner/Scheduler Relationship Specialty Start Date End Date Unknown, Provider, PCP - General 02/03/21
--- OUTSIDE RECORDS SUMMARY | 2023-10-05 13:40 | XMS_ITS | Encounter Summary ---
Author Organization [facility] Address [address] [place] [address] Care Team Providers Care Costume Seamstress Name Role Phone Unknown, Provider Primary Care Provider [phone] Encounter Details Date Type Department Care Team (Late st Contact Info) Description 07/10/2023 Lab Requisition [facility] Pathology & Laboratory Medicine - [facility] [address] [place], [place] [phone] Outr Resulting Lab, Provider Social History Tobacco [...] Procedure Name Priority Date/Time Associated Diagnosis Comments ACUTE HEPATITIS PROFILE Routine 07/10/2023 11:20 EDT documented in this encounter Results * ACUTE HEPATITIS PROFILE (07/10/2023 11:20 EDT) Hep B Surface Ag Negative Negative 07/10/2023 20:27 EDT [facility] Hep C Antibody Negative Negative 07/10/2023 20:27 EDT [facility] Hepatitis A Antibody, IgM Negative Negative 07/10/2023 20:27 EDT [facility] Comment:The results of this assay can be falsely lowered due to the consumption of Biotin. Hepatitis B Core Ab, Total Negative Negative 07/10/2023 20:27 EDT [facility] Blood VENOUS BLOOD / Unknown 07/10/2023 11:20 EDT 07/10/2023 16:51 EDT Provider Outr Resulting Lab CHEMISTRY & BLOOD GAS ORDERABLES [facility] [address] [place] [address] documented in this encounter Visit Diagnoses Not on filedocumented in this encounter Care Teams Costume Seamstress Relationship Specialty Start Date End Date Unknown, Provider, PCP - General 02/03/21 documented as of this encounter
--- OUTSIDE RECORDS SUMMARY | 2023-10-05 13:40 | XMS_ITS | Encounter Summary ---
Author Organization [facility] Address [address] [place] [address] Care Team Providers Care Coil Winder Name Role Phone Unknown, Provider Primary Care Provider Encounter Details Date Type Department Care Team (Late st Contact Info) Description 06/28/2023 Lab Requisition [facility] Pathology & Laboratory Medicine - [address] [id number] Outr Resulting Lab, Provider Social History Tobacco [...] Comments CHLAMYDIA/N. GONORRHOEAE AMPLIFIED NUCLEIC ACID Routine 06/28/2023 9:36 EDT documented in this encounter Results * CHLAMYDIA/N. GONORRHOEAE AMPLIFIED RNA (06/28/2023 9:36 EDT) Neisseria gonorrhoeae Result Negative Negative 06/29/2023 13:09 EDT [facility] Chlamydia trachomatis Result Negative Negative 06/29/2023 13:09 EDT [facility] Urine URINE / Unknown 06/28/2023 9 :36 EDT 06/28/2023 21:16 EDT Provider Outr Resulting Lab MICROBIOLOGY - GENERAL ORDERABLES [facility] [address] [place], [place] [address] documented in this encounter Visit Diagnoses Not on filedocumented in this encounter Care Teams Coil Winder Relationship Specialty Start Date End Date Unknown, Provider, PCP - General 02/03/21 documented as of this encounter
== END ==
PROVIDERS: Visit Provider Nurse Practitioner Family
DX: Z87.09 Personal history of other diseases of the respiratory system (principal); J90 Pleural effusion, not elsewhere classified
CPT/HCPCS: 71046

== ENCOUNTER 2023-10-10 15:43 | Outpatient (CLI) | payer MEDICAID, SELFPAY ==
--- NOTE | 2023-10-10 15:15 | DI.RAD_ITS ---
Exam(s) XR CLAVICLE RT EXAM: XR CLAVICLE RT CLINICAL HISTORY: F/U FRACTURE TECHNIQUE: 2D digital imaging was performed. COMPARISON: CR XR CLAVICLE RT from 09/29/2023 CR XR CHEST 2V PA LATERAL from 09/30/2023 CR XR CHEST 2V PA LATERAL from 10/05/2023 FINDINGS: BONES: Lump worsening of displacement of previously noted mid clavicle fracture, no displaced approxi mately 1/2 with inferiorly. No new fracture is present. No bony destructive lesion is seen. JOINTS: No dislocation present. AC joint is not widened. SOFT TISSUE: Normal IMPRESSION: Increased displacement of mid clavicle fracture. DATA REPOSITORY: RADIATION DOSE DELIVERED:
--- NOTE | 2023-10-10 15:15 | DI.RAD_ITS ---
Exam(s) XR CLAVICLE LT EXAM: XR CLAVICLE LT CLINICAL HISTORY: F/U ACJ SEPARATION TECHNIQUE: 2D digital imaging was performed. Two views COMPARISON: CR XR SHOULDER LT COMPLETE 2+V from 09/29/2023 CR XR CHEST 2V PA LATERAL from 10/05/2023 CR XR CLAVICLE RT from 10/10/2023 FINDINGS: BONES: No acute fracture is present. No bony destructive lesion is seen. JOINTS: AC joint not widened. SOFT TISSUE: Unremarkable. IMPRESSION: Unremarkable radiographs of the left clavicle. DATA REPOSITORY: RADIATION DOSE DELIVERED:
== END 2023-10-10 15:44 | disposition home or self-care (01) ==
LOC: DIORS 15:43
PROVIDERS: Visit Provider Student in an Organized Health Care Education/Training Program
DX: S42.021A Displaced fracture of shaft of right clavicle, initial encounter for closed fracture; S43.102A Unspecified dislocation of left acromioclavicular joint, initial encounter
CPT/HCPCS: 73000

== ENCOUNTER 2023-10-12 17:42 | Observation (INO) | payer MEDICAID, SELFPAY ==
[2023-10-12] VITALS (14 sets, daily range): BP systolic 108–145; BP diastolic 56–98; PULSE 58–92; RESP 12–18; TEMP 36–36.6; O2SAT 96–100; BMI 20.2
--- NOTE | 2023-10-12 12:26 | W.PM.DSUDISC ---
Date of service: 10/12/23 Time of Service: 18:00 Discharge Plan Disposition Patient Disposition: Home Condition: Stable Discharge Details Attending Provider: Carlos Salazar Primary Care Provider: Saira Frances Home Meds and New Rx's Prescriptions: New naproxen 250 mg tablet 250 - 500 mg PO BID PRN (Reason: Moderate pain) Qty: 40 0RF oxycodone 5 mg tablet 5 - 10 mg PO Q4H PRN (Reason: Moderate to severe pain) Qty: 18 0RF Continued bupropion HCl 100 mg tablet 100 mg PO BID Patient Comments: TAKE ONE TABLET BY MOUTH TWICE A DAY cyclobenzaprine 10 mg tablet 10 mg PO TID PRNQty: 15 0RF ibuprofen [Advil] 200 mg tablet 1,000 mg PO Q8H acetaminophen 500 mg capsule 1,000 mg PO Q6H PRN Discharge Instructions Additional Instructions: Surgery: Right clavicle ORIF; Left AC joint separation Activity: Nonweightbearing left upper extremity. May use sling for a few weeks when up and about. Otherwise should remove sling while resting and support forearm on pillows. Encourage increasing elbow, wrist, and hand range of motion to prevent stiffness. Gentle use of hand and fingers okay. A physical therapy prescription will be provided in the office at follow-up if needed. Prescriptions: Naproxen 250 mg take 1-2 every 12 hours with a meal as needed for moderate pain Oxycodone 5 mg take 1-2 every every 4-6 hours as needed for moderate-severe pain or discomfort [id number]-[id number] Tylenol/acetaminophen may be used as needed for mild pain These pain medications may be taken all at once or in different combinations as needed. Dressings: Leave splint and dressing in place until follow-up. Keep clean and dry at all times. Follow-up: 10-[address] Salazar You may take off the leg compression stockings this evening at home. You may also leave them on a few days longer if you have a history of leg swelling or edema. Let us know right away if you develop any redness, drainage, fevers, chest pain, or trouble breathing. Do not drink alcohol or drive for at least 24 hours after anesthesia. Please call the office during business hours with any questions or concerns. Discharge Orders Discharge Orders: Discharge Order (Routine); Ordered 10/12/23 Ordered By: Kayden J Mikey DS: Diagnosis Discharge Diagnosis (1) Right clavicle fracture: Status: Acute
[2023-10-12] MEDS: Lactated Ringers 1,000 ML 30 ML IV (13:19)
--- NOTE | 2023-10-12 13:51 | ANES.PREOP_ITS ---
General Info Date of Service Date Performed: 10/12/23 Height: 5 ft 9 in Weight: 62.3 kg Body Mass Index (BMI): 20.2 Surgical Procedure: Operation Date: 10/12/23 14:55 Proposed Procedure Side Surgeon p Shoulder ORIF Clavicle Right Carlos Salazar MD Meds Allergies and Home Medications Allergies Allergy/AdvReac Type Severity Reaction Status Date / Time No Known Allergies Allergy Verified 10/12/23 13:05 Home Medication ?Medication ?Instructions ?Recorded bupropion HCl 100 mg tablet 100 mg PO BID 09/29/23 cyclobenzaprine 10 mg tablet 10 mg PO TID PRN #15 tabs 09/29/23 acetaminophen 500 mg capsule 1,000 mg PO Q6H PRN 10/11/23 ibuprofen 200 mg tablet (Advil) 1,000 mg PO Q8H 10/11/23 naproxen 250 mg tablet 250 - 500 mg (1 - 2 x 250 mg) PO 10/12/23 BID PRN Moderate pain #40 tabs oxycodone 5 mg tablet 5 - 10 mg (1 - 2 x 5 mg) PO Q4H 10/12/23 PRN Moderate to severe pain #18 tabs Current Visit Medications: Current Medications Generic Name Dose Route Start Last Admin Trade Name Freq PRN Reason Stop Dose Admin Ringer's Solution 1,000 mls @ 30 mls/hr 10/12/23 06:00 10/12/23 13:19 IV 11/10/23 23:59 30 mls/hr INFUSION ULISSES Administration Cefazolin Sodium/Dextrose 2 gm in 50 mls @ 100 mls/hr 10/12/23 06:00 Ancef Duplex IVPB 10/12/23 16:00 PREOP ULISSES Tranexamic Acid/Sodium Chloride 1,000 mg in 100 mls @ 600 mls/hr 10/12/23 06:00 IVPB 10/12/23 16:00 PREOP ULISSES IV Miscellaneous Supplies 1 each 10/12/23 06:00 Iv Access IV 11/10/23 23:59 DIRECTED ULISSES Oxycodone HCl 0 mg 10/12/23 12:25 Oxycodone 5 Mg Tab PO 11/11/23 12:24 Q3H PRN PRN Pain Sodium Chloride 0 ml 10/12/23 06:00 Normal Saline Flush 10 Ml Syr IV 11/10/23 23:59 PRN PRN Sodium Chloride 0 ml 10/12/23 06:00 Normal Saline 10 Ml Vial IJ 11/10/23 23:59 DIRECTED PRN Sterile Water 0 ml 10/12/23 06:00 Water,Injection,Sterile 10 Ml Vial IJ 11/10/23 23:59 DIRECTED PRN PFSH Active Problems Active Problems: Problem Status Onset Code Acromioclavicular (joint) (ligament) sprain Acute S43.50XA Acromioclavicular joint separation Acute S43.109A Loss of consciousness Acute R40.20 L1 vertebral fracture Acute S32.019A Pneumothorax Acute J93.9 Rib fractures Acute S22.49XA Right clavicle fracture Acute ~09/29/23 S42.001A Surgical History Surgical History Hx of colonoscopy Tobacco Smoking/Tobacco Use Status: Current every day Tobacco Type: cigarettes and e- cigarettes Alcohol Alcohol Intake: current Alcohol intake frequency: a few times a month Alcohol type: beer Substance Use Substance use: Occasionally Substance use type: marijuana Vital Signs and Lab Results Vital Signs Most Recent Vital Signs in EMR: Most Recent Vital Signs Temp Pulse Resp BP Pulse Ox 36 C L 90 16 134/78 98 10/12/23 12:50 10/12/23 12:50 10/12/23 12:50 10/12/23 12:50 10/12/23 12:50 Lab Results Blood Type / Crossmatch: No Data to Display Complete Blood Count: White Blood Count 6.88 10^3/uL (4.4-10.8) 09/29/23 09:28 Red Blood Count 4.87 10^6/uL (4.36-5.78) 09/29/23 09:28 Hemoglobin 15.6 g/dL (13.5-17.5) 09/29/23 09:28 Hematocrit 46.3 % (40.0-50.0) 09/29/23 09:28 Platelet Count 175 10^3/uL (130-400) 09/29/23 09:28 Complete Metabolic Panel: Sodium 139 mmol/L (136-145) 09/29/23 11:26 Potassium 4.7 mmol/L (3.5-5.1) 09/29/23 11:26 Chloride 103 mmol/L (98-107) 09/29/23 11:26 Carbon Dioxide 30.6 mmol/L (21.0-32.0) 09/29/23 11:26 BUN 13 mg/dL (7-18) 09/29/23 11:26 Creatinine 1.0 mg/dL (0.70-1.30) 09/29/23 11:26 Est GFR (CKD-EPI 2020) 108.46 (mL/min/1.73m2) 09/29/23 11:26 Calcium 8.8 mg/dL (8.5-10.1) 09/29/23 11:26 Albumin 4.2 g/dL (3.4-5.0) 09/29/23 11:26 Glucose 96 mg/dL (74-106) 09/29/23 11:26 Liver Function Panel: Alanine Aminotransferase (ALT/SGPT) 79 U/L (16-63) H 09/29/23 1 1:26 Aspartate Amino Transf (AST/SGOT) 66 U/L (15-37) H 09/29/23 11: 26 Coagulation Panel: No Data to Display Cardiac Panel: No Data to Display Arterial Blood Gas: No Data to Display Venous Blood Gas: No Data to Display Pancreas Panel: No Data to Display Thyroid Panel: No Data to Display Infectious Disease: No Data to Display Blood Cultures: No Data to Display Toxicology Panel: No Data to Display Anesthesia Assessment and Plan Anesthesia History Personal History: No History of Anesthesia Complications Family History: No Family History of Anesthesia Complications Exercise Tolerance Exercise Tolerance: Metabolic Equivalents>4 Pertinent Negatives Pertinent Negatives: No Symptoms of GERD, No Major Cardiovascular Symptoms or Complaints and No Major Pulmonary Symptoms or Complaints Cardiac & Pulmonary Exam Cardiac Exam: Normal S1/S2 Heart Sounds Pulmonary Exam: Clear Bilateral Breath Sounds Implantable Cardiac Device Does patient have a Pacemaker or an ICD?: No Airway Exam Known Difficult Airway: No Mallampati Class: 1 Mouth Opening: Normal (> 3cm) Thyromental Distance: Greater than 3 cm Neck Range of Motion: Full ROM Neck Circumference: Normal Teeth Condition: Normal Dentition ASA Classification ASA Score: ASA 2 Emergency Case?: No NPO Status NPO Status: NPO Clears >2 hours, Solids >8 hours Anesthesia Plan Resuscitation Status: Full Code Anesthesia Technique: General Anesthesia Airway Planned: LMA Pain Management: Surgeon and patient request nerve block Monitors Used: Standard Monitors and SedLine
--- NOTE | 2023-10-12 15:31 | W.ANESNERVE ---
Nerve Block Single Injection Procedure Date and Time Date Performed: 10/12/23 Procedure Start: 14:30 Location Where Procedure Performed Procedure Location: Day Surgery Unit Reason Performed: Postoperative Analgesia Requesting Provider: Carlos Salazar Timeout Performed Timeout Performed: Yes Monitoring Used ECG, Blood Pressure and SpO2 Sterility Sterility: Hand Hygiene, Surgical Cap, Surgical Mask, Sterile Gloves and Chlorhexidine Sedation Given During Procedure Sedation Given (Indicate Dose Given): Versed IV Dose:: 2 mg Patient Mental Status Patient Mental Status: Sedate with meaningful communication Nerve Block 1st Nerve Block: Laterality: Right Block Type: Interscalene Ultrasound Image Saved?: Yes Needle / Catheter Used: 80mm SonoPlex II Local Anesthetic Bolus (Indicate Dose Given): Lidocaine used for local infiltration of skin and Bupivacaine 0.5% Dose:: 10 mL Additives (Indicate Dose Given): None Ultrasound: Sterile probe cover and gel used Nerve Stimulator: Supplement to Ultrasound use and No twitch or parasthesia noted < 0.5 mA Paresthesia: None Procedure Tolerated: No Complications Procedure Outcome: Successful Performed By: Edil Singh 2nd Nerve Block: Laterality: Right Block Type: Superficial Cervical Plexus Ultrasound Image Saved?: Yes Needle / Catheter Used: 80mm SonoPlex II Local Anesthetic Bolus (Indicate Dose Given): Bupivacaine 0.5% Dose:: 5 mL Additives (Indicate Dose Given): None Ultrasound: Sterile probe cover and gel used Nerve Stimulator: Supplement to Ultrasound use and No twitch or parasthesia noted < 0.5 mA Paresthesia: None Procedure Tolerated: No Complications Procedure Outcome: Successful Performed By: Edil Singh
[2023-10-12] MEDS: ceFAZolin 2 GM/50 ML BAG IVPB (15:35)
--- NOTE | 2023-10-12 15:39 | ROE_ITS ---
Date of service: 10/12/23 Time of Service: 15:40 Operative Note Operative Note DATE OF PROCEDURE: 10/12/23 PRE-OP DIAGNOSIS: Right displaced clavicle fracture PROCEDURE: Right clavicle open reduction internal fixation, CPT #46379 SURGEON: Carlos Salazar HOME HEALTH REGISTERED NURSE: Kayden Jensen ANESTHESIA TYPE: Local By Surgeon, General LMA/ETT and Primary Nerve Block Refer to Anesthesia Record ESTIMATED BLOOD LOSS: 5 Patient was transported to: PACU Implants: Synthes 2.7mm VA LCP clavicle plate system with 4x each medial and lateral locking screws, 1x medial metaphyseal cortrex screw Indications: Please see complete medical record for details. Procedure Description: In the operating room, general anesthesia was induced. The patient was positioned supine on the operating room table. All bony prominences were well- padded. Preoperative antibiotics were administered. The clavicle was prepped and draped in the usual sterile fashion. The correct patient, procedure, and side of the procedure were all verified prior to incision. The planned incision was pre-injected with local anesthetic containing epinephrine. The fracture site was approached raising full-thickness flaps down to bone. The incision was extended medially laterally as necessary. Care was taken to preserve soft tissue attachments. The fracture ends were identified. Bone forceps were used to provisionally obtain reduction. Suture tape cerclage was used to provisionally hold the reduction. The fracture was somewhat medial to the midshaft so the precontoured plates lateral bend made fit somewhat challenging with the lateralmost part wanting to be more anterior as the contour was before the lateral lower part of the clavicle. The plate was applied contoured a few times to fit as best possible including removing this lateral bend as well as a twist to allow it to sit closer to the bone. It was compressed to bone with a cortex screw medially and laterally followed by sequentially filling with locking screws medially and then clamped with bone forceps and compressed with an additional cortex or laterally before filling the lateral screw holes with locking screws and switching this lateral cortex screw for locker. The lateralmost screw hole sat just on the anterior aspect of the clavicle bone, the 15 degree cone guide was used to drill back into the clavicle in probably a unicortical fashion before placing the screw which did measure in bone and thread in bone although it appeared anterior. The plate and fractures were all inspected and demonstrated excellent stability and fixation strength. AP, cephalic tilt, and [id number] fluoroscopy confirmed appropriate fracture reduction and hardware placement. The wound was copiously irrigated with normal saline. Deep and subcutaneous tissue was closed in a full-thickness watertight fashion with buried interrupted 2-0 Monocryl. Subcuticular layer was closed using running 3-0 Monocryl. Skin glue was applied over the incision followed by a Mepilex Band-Aid.
[2023-10-12] MEDS: TRANEXAMIC ACID/SOD. CHL. 1,000 MG/100 ML BAG 600 MG IVPB (15:51)
[2023-10-12] MEDS: Bupivacaine 0.25% Pres-Free W/EPI 30 ML VIAL (16:09)
--- NOTE | 2023-10-12 17:33 | DI.RAD_ITS ---
Exam(s) XR SHOULDER RT 1V EXAM: XR SHOULDER RT 1V CLINICAL HISTORY: Right clavicle fracture. TECHNIQUE: 2D digital imaging was performed. COMPARISON: No exams were available for comparison FINDINGS: Fluoroscopy was provided during procedure on the clavicle. See procedure report for details. IMPRESSION: Radiation exposure index/cumulative dose: Ka,r= 0.3539 mGy DATA REPOSITORY: RADIATION DOSE DELIVERED:
--- NOTE | 2023-10-12 18:11 | DI.RAD_ITS ---
Exam(s) XR PORTABLE CHEST AP EXAM: XR PORTABLE CHEST AP CLINICAL HISTORY: Pneumothorax TECHNIQUE: 2D digital imaging was performed. COMPARISON: CR XR CHEST 2V PA LATERAL from 09/30/2023 CR XR CHEST 2V PA LATERAL from 10/05/2023 CR XR CLAVICLE LT from 10/10/2023 CR XR CLAVICLE RT from 10/10/2023 XA XR SHOULDER RT 1V from 10/12/2023 FINDINGS: LUNGS: Minimal scarring at the left lung base. No evidence of pneumothorax. Tiny left pleural effus ion. HEART: Normal size. AORTA: Normal diameter. BONES: A fixation plate has been placed along the right clavicle for fracture fixation. The alignmen t appears satisfactory. Soft tissues: Unremarkable. IMPRESSION: No evidence of pneumothorax. Stable appearance of tiny left pleural effusion. Status post placement fixation plate over the right clavicle. DATA REPOSITORY: RADIATION DOSE DELIVERED:
--- NOTE | 2023-10-12 18:35 | W.ANESPOSTOP ---
Postoperative Evaluation Date, Time and Location Date Performed: 10/12/23 Time Performed: 18:35 Patient Location: PACU Vital Signs Most Recent Imported Vital Signs: Most Recent Vital Signs Temp Pulse Resp BP Pulse Ox 36.6 C 79 12 120/62 96 10/12/23 18:20 10/12/23 18:20 10/12/23 18:20 10/12/23 18:20 10/12/23 18:20 Pain Score Most Recent Pain Score: Most Recent Pain Score Pain Level 0 10/12/23 15:00 Assessment Mental Status: Awake (Alert & Oriented to Patient Baseline) Airway and Respiratory Function: Patent airway with normal (patient baseline) respiratory exam Cardiovascular Function: Hemodynamically Stable Hydration Status: Adequately Hydrated Nausea & Vomiting: No Nausea or Vomiting Pain: Pain is tolerable per patient Peripheral Nerve Block: Regional nerve block not resolved at time of post operative discharge
== END 2023-10-12 20:04 | disposition home or self-care (01) ==
LOC: MS 18:38
PROVIDERS: Admitting Provider Student in an Organized Health Care Education/Training Program; PCP Nurse Practitioner Family; Visit Provider Student in an Organized Health Care Education/Training Program
PROC: (CPT 23515; principal; 2023-10-12 14:45)
DX: S42.021A Displaced fracture of shaft of right clavicle, initial encounter for closed fracture (principal); S43.102A Unspecified dislocation of left acromioclavicular joint, initial encounter; W31.89XA Contact with other specified machinery, initial encounter
CPT/HCPCS: 23515; 76000; 76942; 71045; 73020; J0131; J0665; J0690; J1100; J1885; J2001; J2250; J2405; J2704

== ENCOUNTER 2023-10-24 15:48 | Outpatient (CLI) | payer MEDICAID, SELFPAY ==
--- NOTE | 2023-10-24 10:45 | DI.RAD_ITS ---
Exam(s) XR CLAVICLE RT EXAM: XR CLAVICLE RT INDICATION: F/U FRACTURE. COMPARISON: CR XR CLAVICLE LT from 10/10/2023 CR XR CLAVICLE RT from 10/10/2023 XA XR SHOULDER RT 1V from 10/12/2023 CR XR PORTABLE CHEST AP from 10/12/2023 TECHNIQUE: 2D digital imaging was performed. Two views. FINDINGS: No change in fracture or hardware alignment. No new abnormalities. DATA REPOSITORY: RADIATION DOSE DELIVERED:
== END 2023-10-24 15:49 | disposition home or self-care (01) ==
LOC: DIORS 15:48
PROVIDERS: PCP Nurse Practitioner Family; Visit Provider Student in an Organized Health Care Education/Training Program
DX: S42.021D Displaced fracture of shaft of right clavicle, subsequent encounter for fracture with routine healing (principal); X58.XXXD Exposure to other specified factors, subsequent encounter
CPT/HCPCS: 73000

== ENCOUNTER 2023-11-21 15:35 | Outpatient (CLI) | payer MEDICAID, SELFPAY ==
--- NOTE | 2023-11-21 14:30 | DI.RAD_ITS ---
Exam(s) XR CLAVICLE RT EXAM: XR CLAVICLE RT CLINICAL HISTORY: F/U FRACTURE TECHNIQUE: 2D digital imaging was performed. Two views COMPARISON: CR XR CLAVICLE RT from 10/24/2023 FINDINGS: BONES: Continued healing of the clavicle fracture. Stable hardware alignment. No bony destructive l esion is seen. JOINTS: No dislocation present. The joint is unremarkable SOFT TISSUE: Normal IMPRESSION: Continued healing of clavicle fracture. DATA REPOSITORY: RADIATION DOSE DELIVERED:
== END 2023-11-21 15:36 | disposition home or self-care (01) ==
LOC: DIORS 15:35
PROVIDERS: PCP Nurse Practitioner Family; Visit Provider Student in an Organized Health Care Education/Training Program
DX: S42.021D Displaced fracture of shaft of right clavicle, subsequent encounter for fracture with routine healing (principal); X58.XXXD Exposure to other specified factors, subsequent encounter
CPT/HCPCS: 73000

== ENCOUNTER 2024-01-02 15:21 | Outpatient (CLI) | payer MEDICAID, SELFPAY ==
--- NOTE | 2024-01-02 14:00 | DI.RAD_ITS ---
Exam(s) XR CLAVICLE LT EXAM: XR CLAVICLE LT CLINICAL HISTORY: F/U LEFT ACJ SPRAIN TECHNIQUE: 2D digital imaging was performed. Two views COMPARISON: CR XR CLAVICLE LT from 10/10/2023 CR XR PORTABLE CHEST AP from 10/12/2023 CR XR CLAVICLE RT from 10/24/2023 CR XR CLAVICLE RT from 11/21/2023 FINDINGS: BONES: No acute fracture is present. No bony destructive lesion is seen. JOINTS: AC joint is widened which appears increased when compared with previous exam. Other some adj acent calcification present. Cortical clavicular distance is normal. SOFT TISSUE: Unremarkable. IMPRESSION: Widening of the AC joint with adjacent calcification DATA REPOSITORY: RADIATION DOSE DELIVERED:
--- NOTE | 2024-01-02 14:00 | DI.RAD_ITS ---
Exam(s) XR CLAVICLE RT EXAM: XR CLAVICLE RT INDICATION: F/U R CLAVICLE ORIF. COMPARISON: CR XR CLAVICLE RT from 11/21/2023 CR XR CLAVICLE LT from 01/02/2024 TECHNIQUE: 2D digital imaging was performed. Two views. FINDINGS: Continued healing of the clavicle fracture, now only faintly visualized. No change in positioning of the fixation plate. No new abnormalities. DATA REPOSITORY: RADIATION DOSE DELIVERED:
== END 2024-01-02 15:22 | disposition home or self-care (01) ==
LOC: DIORS 15:21
PROVIDERS: PCP Nurse Practitioner Family; Visit Provider Student in an Organized Health Care Education/Training Program
DX: S42.021D Displaced fracture of shaft of right clavicle, subsequent encounter for fracture with routine healing (principal); S43.52XD Sprain of left acromioclavicular joint, subsequent encounter; X58.XXXD Exposure to other specified factors, subsequent encounter
CPT/HCPCS: 73000

== ENCOUNTER 2024-05-01 01:45 | Outpatient (CLI) | payer MEDICAID, SELFPAY ==
--- NOTE | 2024-05-01 | DI.CT_ITS ---
Exam(s) CT HEAD WO/W EXAM: CT HEAD WO/W CLINICAL HISTORY: SEIZURE LIKE ACTIVITY, R56.9, CONVULSIONS. TECHNIQUE: Imaging Protocol: Axial computed tomography images with coronal and sagittal reformatted images were created and reviewed. CONTRAST MATERIAL: Intravenous: Omnipaque 350 Contrast volume:98 ml COMPARISON: CT CT HEAD CERVICAL SPINE WO from 09/29/2023 FINDINGS: Ventricles and Extra axial spaces: Normal in size and morphology for the patient's age. Hemorrhage: None. Cerebral parenchyma: Normal. Enhancement: No suspicious enhancement. Midline shift: None. Brainstem/Cerebellum: Normal. Calvarium: Normal. Visualized Paranasal sinuses/Mastoids: Clear. IMPRESSION: Normal CT scan of the head. RADIATION DOSE DELIVERED: 1,958.18mGy.cm Total DLP DATA REPOSITORY: All CT scans at this facility are submitted to the National Radiology Data Registry (NRDR) Dose Index Registry (DIR) with the [employer] ([employer]). RADIATION OPTIMIZATION: All CT scans at this facility use at least one of these dose optimization te chniques: automated exposure control; mA and/or kV adjustment per patient size (includes targeted exa ms where dose is matched to clinical indication); or iterative reconstruction.
[2024-05-01] MEDS: Normal Saline - Diluent 50 ML VIAL IJ (14:51)
[2024-05-01] MEDS: Omnipaque 350 MG/ML 50 ML BTL IJ ×2 (14:52→14:53)
== END 2024-05-01 02:05 ==
LOC: DI 01:46
PROVIDERS: PCP Nurse Practitioner Family; Visit Provider Nurse Practitioner Family
DX: R56.9 Unspecified convulsions (principal)
CPT/HCPCS: 70470; Q9967